=== PATIENT | female | born 1985 | race African-American/Black ===

== ENCOUNTER 2017-09-01 09:46 | Emergency (ER) | payer OTHER ==
[~2017-09-01] VITALS: Ht 170.2 cm; Wt 59.9 kg
[2017-09-01 09:47] VITALS: BP 125/85
[2017-09-01] MEDS ORDERED: NAPROSYN500 MG PO (10:23)
[2017-09-01] MEDS ORDERED: HYDROCODONE-AP1 EAC6 PO (10:23)
== END 2017-09-01 10:51 | disposition home or self-care (01) ==
LOC: ER 09:46
DX: K08.89 Other specified disorders of teeth and supporting structures (principal); F17.210 Nicotine dependence, cigarettes, uncomplicated